=== PATIENT | female | born 1960 | race Caucasian/White ===

== ENCOUNTER 2023-12-04 00:47 | Emergency (ER) | payer BC ==
[2023-12-04] MEDS: LORazepam 0.5 MG Tab PO ONE (01:15)
== END 2023-12-04 01:45 | disposition home or self-care (01) ==
LOC: MERGE 00:47 → KA.ED 00:47
DX: I10 Essential (primary) hypertension (principal); R00.0 Tachycardia, unspecified
CPT/HCPCS: 93010; 99284; A9270-GY